=== PATIENT | male | born 1965 | race Caucasian/White ===

== ENCOUNTER 2020-04-23 09:08 | Inpatient (IN) | payer OTHER ==
[2020-04-23] MEDS ORDERED: MAGNESIUM CITRATE 300 ML BOTTLE PO PRN (13:26)
[2020-04-23] MEDS ORDERED: ACETAMINOPHEN 325 MG TABLET (FP) PO PRN ×2 (13:26)
[2020-04-23] MEDS ORDERED: BISMUTH SUBSALICYLATE 524 MG/30 ML UD PO PRN (13:26)
[2020-04-23] MEDS ORDERED: chlordiazePOXIDE HCL 25 MG CAPSULE PO PRN (13:26)
[2020-04-23] MEDS ORDERED: NICOTINE POLACRILEX 2 MG GUM BUC PRN (13:26)
[2020-04-23] MEDS ORDERED: ONDANSETRON *ODT* 4 MG TABLET SL PRN (13:26)
[2020-04-23] MEDS ORDERED: MAGNESIUM HYDROX 2400MG/30ML ORAL SUSPENSION 30 ML CUP PO PRN (13:26)
[2020-04-23] MEDS ORDERED: METHOCARBAMOL 500 MG TABLET PO PRN (13:26)
[2020-04-23] MEDS ORDERED: IBUPROFEN 400 MG TABLET (FP) PO PRN (13:26)
[2020-04-23] MEDS ORDERED: MAG HYDROX/AL HYDROX/SIMETH 30 ML UNIT-DOSE CUP PO PRN (13:26)
[2020-04-23] MEDS ORDERED: MENTHOL/PHENOL 1 EACH UD MM PRN (13:26)
[2020-04-23 14:37] VITALS: BMI 26.3
[2020-04-23] MEDS ORDERED: COLLOIDAL OATMEAL 1 BAR EACH TP PRN (14:49)
[2020-04-23] MEDS: hydrOXYzine PAMOATE 25 MG CAPSULE (FP) PO SCH ×3 (15:50→23:00)
[2020-04-23] MEDS: chlordiazePOXIDE HCL 25 MG CAPSULE PO SCH ×2 (17:51→23:00)
[2020-04-23] MEDS: THIAMINE HCL 100 MG TABLET (FP) PO SCH (23:00)
[2020-04-23] MEDS: AMMONIUM LACTATE 12% LOTION 225 GM BOTTLE TP SCH (23:00)
[2020-04-23] MEDS: MELATONIN 5 MG TABLETS PO SCH (23:01)
[2020-04-24] MEDS ORDERED: METHADONE HCL 10 MG TABLET PO ONE (06:00)
[2020-04-24] MEDS: chlordiazePOXIDE HCL 25 MG CAPSULE PO SCH ×4 (06:14→22:32)
[2020-04-24] MEDS: hydrOXYzine PAMOATE 25 MG CAPSULE (FP) PO SCH ×5 (06:14→22:32)
[2020-04-24] MEDS: SERTRALINE HCL 50 MG TABLET (FP) PO SCH (10:42)
[2020-04-24] MEDS: AMMONIUM LACTATE 12% LOTION 225 GM BOTTLE TP SCH ×2 (10:42→22:34)
[2020-04-24] MEDS: NICOTINE 21 MG/24 HOURS TOPICAL PATCH TD SCH (10:43)
[2020-04-24] MEDS: PRENATAL VITAMINS W/ FOLIC ACID TABLET (FP) PO SCH (10:43)
[2020-04-24 11:18] LABS: HEMATOCRIT 38.5 % (35.4-49); HEMOGLOBIN 12.6 GM/dL (11.7-16.9); MCH 29.8 pg (25.7-33.7); MCHC 32.8 g/dl (32.0-35.9); MEAN CELL VOLUME 90.9 fl (80-96); MEAN PLT VOLUME 8.7 fl (7.5-11.1); PLATELET COUNT 236 K/MM3 (134-434); RBC 4.24 M/mm3 (4.00-5.60); RDW 12.9 % (11.9-15.9); WHITE BLOOD COUNT 6.5 K/mm3 (4.0-10.0)
[2020-04-24 11:20] LABS: POTASSIUM 4.1 mmol/L (3.5-5.1)
[2020-04-24 11:28] LABS: ALBUMIN 3.9 g/dl (3.4-5.0); BLOOD UREA NITROGEN 14.3 mg/dL (7-18)
[2020-04-24 11:29] LABS: CALCIUM 8.5 mg/dL (8.5-10.1)
[2020-04-24 11:30] LABS: CREATININE 0.8 mg/dL (0.55-1.3)
[2020-04-24 11:32] LABS: TOT PROT 7.3 g/dl (6.4-8.2)
[2020-04-24 12:07] LABS: HIV INTERPRETATION NEGATIVE (NEGATIVE)
[2020-04-24] MEDS: MELATONIN 5 MG TABLETS PO SCH (22:32)
[2020-04-24] MEDS: QUEtiapine FUMARATE 200 MG TABLET PO SCH (22:32)
[2020-04-24] MEDS: THIAMINE HCL 100 MG TABLET (FP) PO SCH (22:32)
[2020-04-25] MEDS: chlordiazePOXIDE HCL 25 MG CAPSULE PO SCH ×4 (05:59→22:31)
[2020-04-25] MEDS: hydrOXYzine PAMOATE 25 MG CAPSULE (FP) PO SCH ×2 (06:00→10:15)
[2020-04-25] MEDS ORDERED: METHADONE HCL 10 MG TABLET PO ONE (09:04)
[2020-04-25] MEDS: SERTRALINE HCL 50 MG TABLET (FP) PO SCH (10:15)
[2020-04-25] MEDS: PRENATAL VITAMINS W/ FOLIC ACID TABLET (FP) PO SCH (10:15)
[2020-04-25] MEDS: NICOTINE 21 MG/24 HOURS TOPICAL PATCH TD SCH (10:17)
[2020-04-25] MEDS: AMMONIUM LACTATE 12% LOTION 225 GM BOTTLE TP SCH ×2 (10:17→22:33)
[2020-04-25] MEDS ORDERED: hydrOXYzine PAMOATE 25 MG CAPSULE (FP) PO PRN (12:50)
[2020-04-25] MEDS: MELATONIN 5 MG TABLETS PO SCH (22:30)
[2020-04-25] MEDS: THIAMINE HCL 100 MG TABLET (FP) PO SCH (22:30)
[2020-04-25] MEDS: QUEtiapine FUMARATE 200 MG TABLET PO SCH (22:31)
[2020-04-26] MEDS ORDERED: chlordiazePOXIDE HCL 10 MG CAPSULE PO PRN
[2020-04-26] MEDS: chlordiazePOXIDE HCL 10 MG CAPSULE PO SCH ×4 (05:41→22:07)
[2020-04-26] MEDS: METHADONE HCL 10 MG TABLET PO SCH (05:43)
[2020-04-26] MEDS: SERTRALINE HCL 50 MG TABLET (FP) PO SCH (10:08)
[2020-04-26] MEDS: PRENATAL VITAMINS W/ FOLIC ACID TABLET (FP) PO SCH (10:08)
[2020-04-26] MEDS: AMMONIUM LACTATE 12% LOTION 225 GM BOTTLE TP SCH ×2 (10:09→22:09)
[2020-04-26] MEDS: NICOTINE 21 MG/24 HOURS TOPICAL PATCH TD SCH (10:10)
[2020-04-26 10:50] LABS: SGOT/AST 66 U/L (15-37); SGPT/ALT 69 U/L (13-61)
[2020-04-26] MEDS ORDERED: LIDOCAINE 5% TOPICAL PATCH TP SCH (11:00)
[2020-04-26] MEDS: LIDOCAINE 5% TOPICAL PATCH TP SCH (13:02)
[2020-04-26] MEDS: MELATONIN 5 MG TABLETS PO SCH (22:08)
[2020-04-26] MEDS: THIAMINE HCL 100 MG TABLET (FP) PO SCH (22:08)
[2020-04-26] MEDS: QUEtiapine FUMARATE 200 MG TABLET PO SCH (22:08)
[2020-04-26] MEDS: LIDOCAINE PATCH REMOVAL MC SCH (22:08)
[2020-04-27] MEDS: METHADONE HCL 10 MG TABLET PO SCH (06:01)
[2020-04-27] MEDS: chlordiazePOXIDE HCL 10 MG CAPSULE PO SCH ×2 (06:02→17:54)
[2020-04-27] MEDS ORDERED: IBUPROFEN 600 MG TABLET (FP) PO PRN (10:18)
[2020-04-27] MEDS ORDERED: LIDOCAINE 5% TOPICAL PATCH TP SCH (10:19)
[2020-04-27] MEDS: NICOTINE 21 MG/24 HOURS TOPICAL PATCH TD SCH (10:20)
[2020-04-27] MEDS: PRENATAL VITAMINS W/ FOLIC ACID TABLET (FP) PO SCH (10:20)
[2020-04-27] MEDS: AMMONIUM LACTATE 12% LOTION 225 GM BOTTLE TP SCH ×2 (10:20→22:31)
[2020-04-27] MEDS: SERTRALINE HCL 50 MG TABLET (FP) PO SCH (10:21)
[2020-04-27] MEDS: LIDOCAINE 5% TOPICAL PATCH TP SCH (10:58)
[2020-04-27] MEDS: QUEtiapine FUMARATE 200 MG TABLET PO SCH (22:30)
[2020-04-27] MEDS: THIAMINE HCL 100 MG TABLET (FP) PO SCH (22:30)
[2020-04-27] MEDS: MELATONIN 5 MG TABLETS PO SCH (22:30)
[2020-04-27] MEDS: LIDOCAINE PATCH REMOVAL MC SCH (22:30)
[2020-04-28] MEDS ORDERED: chlordiazePOXIDE HCL 10 MG CAPSULE PO ONE (05:00)
[2020-04-28] MEDS: METHADONE HCL 10 MG TABLET PO SCH (05:42)
[2020-04-28] MEDS: AMMONIUM LACTATE 12% LOTION 225 GM BOTTLE TP SCH (10:35)
[2020-04-28] MEDS: PRENATAL VITAMINS W/ FOLIC ACID TABLET (FP) PO SCH (10:35)
[2020-04-28] MEDS: SERTRALINE HCL 50 MG TABLET (FP) PO SCH (10:36)
[2020-04-28] MEDS: NICOTINE 21 MG/24 HOURS TOPICAL PATCH TD SCH (10:36)
[2020-04-28 13:37] VITALS: BP 124/85; PULSE 64; TEMP 95.8
== END 2020-04-28 03:23 | disposition other institution (70) | DRG 773 ==
LOC: YASAS 09:08 → Y6N 13:29 → Y3N 14:25
PROVIDERS: ADMIT Allergy & Immunology; ATTEND Allergy & Immunology
PROC: HZ2ZZZZ Detoxification Services for Substance Abuse Treatment (ICD-10-PCS; principal; 2020-04-23)
DX: F10.230 Alcohol dependence with withdrawal, uncomplicated (principal); F11.20 Opioid dependence, uncomplicated; F14.20 Cocaine dependence, uncomplicated; F17.210 Nicotine dependence, cigarettes, uncomplicated; F31.9 Bipolar disorder, unspecified; F20.9 Schizophrenia, unspecified; B18.2 Chronic viral hepatitis C; R56.9 Unspecified convulsions; R74.01 Elevation of levels of liver transaminase levels; Z91.5 Personal history of self-harm; Z98.890 Other specified postprocedural states; Z91.013 Allergy to seafood
CPT/HCPCS: 36415; 80053; 84450; 84460; 85027; 86780; 87389; C9803; Q0162; U0003

== ENCOUNTER 2020-04-28 17:14 | Inpatient (IN) | payer OTHER ==
[2020-04-28] MEDS ORDERED: MAG HYDROX/AL HYDROX/SIMETH 30 ML UNIT-DOSE CUP PO PRN (23:46)
[2020-04-28] MEDS ORDERED: MAGNESIUM HYDROX 2400MG/30ML ORAL SUSPENSION 30 ML CUP PO PRN (23:46)
[2020-04-28] MEDS ORDERED: ACETAMINOPHEN 325 MG TABLET (FP) PO PRN (23:46)
[2020-04-28] MEDS ORDERED: P-EPHED 60MG/TRIPROLIDI 2.5MG TABLET PO PRN (23:46)
[2020-04-28] MEDS ORDERED: LOPERAMIDE HCL 2 MG CAPSULE PO PRN (23:46)
[2020-04-28] MEDS ORDERED: MAGNESIUM CITRATE 300 ML BOTTLE PO PRN (23:46)
[2020-04-28] MEDS ORDERED: guaiFENesin 200 MG/10 ML 10 ML UNIT-DOSE CUPS PO PRN (23:46)
[2020-04-28] MEDS ORDERED: MENTHOL/PHENOL 1 EACH UD MM PRN (23:46)
[2020-04-29 00:13] VITALS: BMI 27.7
[2020-04-29] MEDS: MELATONIN 5 MG TABLETS PO SCH ×2 (06:17→21:03)
[2020-04-29] MEDS ORDERED: METHADONE HCL 10 MG TABLET PO ONE (09:45)
[2020-04-29] MEDS: PRENATAL VITAMINS W/ FOLIC ACID TABLET (FP) PO SCH (09:55)
[2020-04-29] MEDS: SERTRALINE HCL 50 MG TABLET (FP) PO SCH (11:41)
[2020-04-29] MEDS: THIAMINE HCL 100 MG TABLET (FP) PO SCH (21:03)
[2020-04-29] MEDS: QUEtiapine FUMARATE 300 MG TABLET PO SCH (21:04)
[2020-04-29] MEDS ORDERED: PT OWN MED DRAWER 7, Y5N ONE (21:05)
[2020-04-29] MEDS: METHYL SALICYLATE/MENTHOL OINT 30 GM TUBE TP SCH (21:05)
[2020-04-30] MEDS: METHADONE HCL 10 MG TABLET PO SCH (05:43)
[2020-04-30] MEDS: METHYL SALICYLATE/MENTHOL OINT 30 GM TUBE TP SCH ×2 (10:07→21:30)
[2020-04-30] MEDS: SERTRALINE HCL 50 MG TABLET (FP) PO SCH (10:08)
[2020-04-30] MEDS: PRENATAL VITAMINS W/ FOLIC ACID TABLET (FP) PO SCH (10:08)
[2020-04-30] MEDS: THIAMINE HCL 100 MG TABLET (FP) PO SCH (21:31)
[2020-04-30] MEDS: MELATONIN 5 MG TABLETS PO SCH (21:31)
[2020-04-30] MEDS: QUEtiapine FUMARATE 300 MG TABLET PO SCH (21:31)
[2020-05-01] MEDS: METHADONE HCL 10 MG TABLET PO SCH (06:37)
[2020-05-01] MEDS: SERTRALINE HCL 50 MG TABLET (FP) PO SCH (09:56)
[2020-05-01] MEDS: METHYL SALICYLATE/MENTHOL OINT 30 GM TUBE TP SCH ×2 (09:56→21:34)
[2020-05-01] MEDS: PRENATAL VITAMINS W/ FOLIC ACID TABLET (FP) PO SCH (09:56)
[2020-05-01] MEDS: THIAMINE HCL 100 MG TABLET (FP) PO SCH (21:33)
[2020-05-01] MEDS: QUEtiapine FUMARATE 300 MG TABLET PO SCH (21:33)
[2020-05-01] MEDS: MELATONIN 5 MG TABLETS PO SCH (21:33)
[2020-05-02] MEDS: METHADONE HCL 10 MG TABLET PO SCH (06:15)
[2020-05-02] MEDS: SERTRALINE HCL 50 MG TABLET (FP) PO SCH (09:44)
[2020-05-02] MEDS: PRENATAL VITAMINS W/ FOLIC ACID TABLET (FP) PO SCH (09:44)
[2020-05-02] MEDS: METHYL SALICYLATE/MENTHOL OINT 30 GM TUBE TP SCH ×2 (09:45→21:22)
[2020-05-02] MEDS: THIAMINE HCL 100 MG TABLET (FP) PO SCH (21:22)
[2020-05-02] MEDS: QUEtiapine FUMARATE 300 MG TABLET PO SCH (21:22)
[2020-05-02] MEDS: MELATONIN 5 MG TABLETS PO SCH (21:22)
[2020-05-03] MEDS: METHADONE HCL 10 MG TABLET PO SCH (06:31)
[2020-05-03] MEDS ORDERED: PT OWN MED DRAWER 7, Y5N ONE (08:58)
[2020-05-03] MEDS: PRENATAL VITAMINS W/ FOLIC ACID TABLET (FP) PO SCH (09:40)
[2020-05-03] MEDS: SERTRALINE HCL 50 MG TABLET (FP) PO SCH (09:40)
[2020-05-03] MEDS: METHYL SALICYLATE/MENTHOL OINT 30 GM TUBE TP SCH ×2 (09:41→21:10)
[2020-05-03] MEDS: THIAMINE HCL 100 MG TABLET (FP) PO SCH (21:10)
[2020-05-03] MEDS: MELATONIN 5 MG TABLETS PO SCH (21:10)
[2020-05-03] MEDS: QUEtiapine FUMARATE 300 MG TABLET PO SCH (21:10)
[2020-05-04] MEDS: METHADONE HCL 10 MG TABLET PO SCH (06:22)
[2020-05-04] MEDS: METHYL SALICYLATE/MENTHOL OINT 30 GM TUBE TP SCH ×2 (09:57→21:35)
[2020-05-04] MEDS: SERTRALINE HCL 50 MG TABLET (FP) PO SCH (09:57)
[2020-05-04] MEDS: PRENATAL VITAMINS W/ FOLIC ACID TABLET (FP) PO SCH (09:57)
[2020-05-04] MEDS: QUEtiapine FUMARATE 300 MG TABLET PO SCH (21:35)
[2020-05-04] MEDS: THIAMINE HCL 100 MG TABLET (FP) PO SCH (21:35)
[2020-05-04] MEDS: MELATONIN 5 MG TABLETS PO SCH (22:05)
[2020-05-05] MEDS: METHADONE HCL 10 MG TABLET PO SCH (06:27)
[2020-05-05] MEDS: PRENATAL VITAMINS W/ FOLIC ACID TABLET (FP) PO SCH (09:55)
[2020-05-05] MEDS: METHYL SALICYLATE/MENTHOL OINT 30 GM TUBE TP SCH ×2 (09:55→21:21)
[2020-05-05] MEDS: SERTRALINE HCL 50 MG TABLET (FP) PO SCH (09:55)
[2020-05-05] MEDS: MELATONIN 5 MG TABLETS PO SCH (21:21)
[2020-05-05] MEDS: QUEtiapine FUMARATE 300 MG TABLET PO SCH (21:21)
[2020-05-05] MEDS: THIAMINE HCL 100 MG TABLET (FP) PO SCH (21:21)
[2020-05-06] MEDS: METHADONE HCL 10 MG TABLET PO SCH (06:27)
[2020-05-06] MEDS: METHYL SALICYLATE/MENTHOL OINT 30 GM TUBE TP SCH ×2 (09:35→21:18)
[2020-05-06] MEDS: PRENATAL VITAMINS W/ FOLIC ACID TABLET (FP) PO SCH (09:35)
[2020-05-06] MEDS: SERTRALINE HCL 50 MG TABLET (FP) PO SCH (09:36)
[2020-05-06] MEDS: THIAMINE HCL 100 MG TABLET (FP) PO SCH (21:17)
[2020-05-06] MEDS: MELATONIN 5 MG TABLETS PO SCH (21:17)
[2020-05-06] MEDS: QUEtiapine FUMARATE 300 MG TABLET PO SCH (21:18)
[2020-05-07] MEDS: METHADONE HCL 10 MG TABLET PO SCH (06:26)
[2020-05-07] MEDS: SERTRALINE HCL 50 MG TABLET (FP) PO SCH (10:02)
[2020-05-07] MEDS: METHYL SALICYLATE/MENTHOL OINT 30 GM TUBE TP SCH ×2 (10:02→21:05)
[2020-05-07] MEDS: PRENATAL VITAMINS W/ FOLIC ACID TABLET (FP) PO SCH (10:02)
[2020-05-07] MEDS: QUEtiapine FUMARATE 300 MG TABLET PO SCH (21:04)
[2020-05-07] MEDS: MELATONIN 5 MG TABLETS PO SCH (21:04)
[2020-05-07] MEDS: THIAMINE HCL 100 MG TABLET (FP) PO SCH (21:04)
[2020-05-08] MEDS: METHADONE HCL 10 MG TABLET PO SCH (06:21)
[2020-05-08] MEDS: METHYL SALICYLATE/MENTHOL OINT 30 GM TUBE TP SCH ×2 (09:00→21:19)
[2020-05-08] MEDS: SERTRALINE HCL 50 MG TABLET (FP) PO SCH (10:00)
[2020-05-08] MEDS: PRENATAL VITAMINS W/ FOLIC ACID TABLET (FP) PO SCH (10:00)
[2020-05-08] MEDS ORDERED: PT OWN MED DRAWER 7, Y5N ONE (10:15)
[2020-05-08] MEDS: MELATONIN 5 MG TABLETS PO SCH (21:19)
[2020-05-08] MEDS: QUEtiapine FUMARATE 300 MG TABLET PO SCH (21:19)
[2020-05-08] MEDS: THIAMINE HCL 100 MG TABLET (FP) PO SCH (21:19)
[2020-05-09] MEDS: METHADONE HCL 10 MG TABLET PO SCH (06:24)
[2020-05-09] MEDS: PRENATAL VITAMINS W/ FOLIC ACID TABLET (FP) PO SCH (10:19)
[2020-05-09] MEDS: SERTRALINE HCL 50 MG TABLET (FP) PO SCH (10:19)
[2020-05-09] MEDS: METHYL SALICYLATE/MENTHOL OINT 30 GM TUBE TP SCH ×2 (10:20→21:27)
[2020-05-09] MEDS: QUEtiapine FUMARATE 300 MG TABLET PO SCH (21:29)
[2020-05-09] MEDS: MELATONIN 5 MG TABLETS PO SCH (21:29)
[2020-05-09] MEDS: THIAMINE HCL 100 MG TABLET (FP) PO SCH (21:29)
[2020-05-10] MEDS: METHADONE HCL 10 MG TABLET PO SCH (06:33)
[2020-05-10] MEDS ORDERED: PT OWN MED DRAWER 7, Y5N ONE (08:47)
[2020-05-10] MEDS: SERTRALINE HCL 50 MG TABLET (FP) PO SCH (09:33)
[2020-05-10] MEDS: METHYL SALICYLATE/MENTHOL OINT 30 GM TUBE TP SCH ×2 (09:33→21:43)
[2020-05-10] MEDS: PRENATAL VITAMINS W/ FOLIC ACID TABLET (FP) PO SCH (09:33)
[2020-05-10] MEDS: THIAMINE HCL 100 MG TABLET (FP) PO SCH (21:42)
[2020-05-10] MEDS: MELATONIN 5 MG TABLETS PO SCH (21:42)
[2020-05-10] MEDS: QUEtiapine FUMARATE 300 MG TABLET PO SCH (21:43)
[2020-05-11] MEDS: METHADONE HCL 10 MG TABLET PO SCH (06:19)
[2020-05-11] MEDS: PRENATAL VITAMINS W/ FOLIC ACID TABLET (FP) PO SCH (09:42)
[2020-05-11] MEDS: SERTRALINE HCL 50 MG TABLET (FP) PO SCH (09:43)
[2020-05-11] MEDS: METHYL SALICYLATE/MENTHOL OINT 30 GM TUBE TP SCH ×2 (09:43→21:07)
[2020-05-11] MEDS: THIAMINE HCL 100 MG TABLET (FP) PO SCH (21:07)
[2020-05-11] MEDS: QUEtiapine FUMARATE 300 MG TABLET PO SCH (21:07)
[2020-05-11] MEDS: MELATONIN 5 MG TABLETS PO SCH (21:07)
[2020-05-12] MEDS: METHADONE HCL 10 MG TABLET PO SCH (06:20)
[2020-05-12] MEDS ORDERED: PT OWN MED DRAWER 7, Y5N ONE (09:00)
[2020-05-12] MEDS: PRENATAL VITAMINS W/ FOLIC ACID TABLET (FP) PO SCH (10:20)
[2020-05-12] MEDS: SERTRALINE HCL 50 MG TABLET (FP) PO SCH (10:21)
[2020-05-12] MEDS: METHYL SALICYLATE/MENTHOL OINT 30 GM TUBE TP SCH ×2 (10:21→21:19)
[2020-05-12] MEDS: MELATONIN 5 MG TABLETS PO SCH (21:18)
[2020-05-12] MEDS: QUEtiapine FUMARATE 300 MG TABLET PO SCH (21:18)
[2020-05-12] MEDS: THIAMINE HCL 100 MG TABLET (FP) PO SCH (21:18)
[2020-05-13] MEDS ORDERED: METHADONE HCL 10 MG TABLET PO SCH (06:00)
[2020-05-13 07:02] VITALS: BP 130/85; PULSE 74; TEMP 97.1
[2020-05-13] MEDS ORDERED: PT OWN MED DRAWER 7, Y5N ONE (08:51)
[2020-05-13] MEDS: PRENATAL VITAMINS W/ FOLIC ACID TABLET (FP) PO SCH (09:08)
[2020-05-13] MEDS: SERTRALINE HCL 50 MG TABLET (FP) PO SCH (09:08)
[2020-05-13] MEDS: METHYL SALICYLATE/MENTHOL OINT 30 GM TUBE TP SCH (09:09)
== END 2020-05-13 09:12 | disposition home or self-care (01) | DRG 772 ==
LOC: YASAS 17:14 → Y5N 04-29 01:08 → Y3E 05-06 16:15
PROVIDERS: ADMIT Allergy & Immunology; ATTEND Allergy & Immunology
PROC: HZ42ZZZ Group Counseling for Substance Abuse Treatment, Cognitive-Behavioral (ICD-10-PCS; principal; 2020-04-29)
DX: F10.20 Alcohol dependence, uncomplicated (principal); F11.20 Opioid dependence, uncomplicated; F14.20 Cocaine dependence, uncomplicated; F17.210 Nicotine dependence, cigarettes, uncomplicated; F10.282 Alcohol dependence with alcohol-induced sleep disorder; F31.9 Bipolar disorder, unspecified; B18.2 Chronic viral hepatitis C; Z86.69 Personal history of other diseases of the nervous system and sense organs; Z91.013 Allergy to seafood
CPT/HCPCS: 93005; 93010; C9803; U0003